=== PATIENT | male | born 1985 | race African-American/Black ===

== ENCOUNTER 2018-08-06 02:24 | Emergency (ER) | payer SELFPAY ==
[~2018-08-06] VITALS: Ht 177.8 cm; Wt 70.3 kg
--- OUTSIDE RECORDS SUMMARY | 2018-08-06 02:26 | XMS REPORT | Clinical Summary ---
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 02/02/2018 ibuprofen (ADVIL,MOTRIN) Take 1 tablet 40 tablet 0 600 MG tablet (600 mg 8 total) by mouth every 6 (six) hours as needed for mild pain for up to 30 days. 01/08/2018 acetaminophen-codeine Take 1-2 15 tablet 0 (TYLENOL WITH CODEINE #3) tablets by 8 300-30 mg per tablet mouth every 6 (six) hours as needed for moderate pain for up to 5 days. Active Problems Not on file Encounters Care Team Description Date Type Specialty Edison Dickey MD Shoulder dislocation, recurrent, left (Primary Dx) 01/03/2018 Emergency Emergency Medicine after 08/05/2017 Social History Date Tobacco Use Types Packs/Day Years Used Current Every Day Smoker 0.5 Smokeless Tobacco: Never Used Alcohol Use Drinks/Week oz/Week Comments No Sex Assigned at Date Recorded Not on file Industry Job Start Date Occupation Not on file Not on file Not on file Travel End Travel History Travel Start No recent travel history available. Last Filed Vital Signs Time Taken Vital Sign Reading 01/03/2018 3:35 AM CDT Blood Pressure 130/82 01/03/2018 3:35 AM CDT Pulse 78 01/03/2018 3:32 AM CDT Temperature 37.2 C (98.9 F) 01/03/2018 3:35 AM CDT Respiratory Rate 19 01/03/2018 3:35 AM CDT Oxygen Saturation 100% - Inhaled Oxygen - Concentration 01/03/2018 3:03 AM CDT Weight 70.3 kg (155 lb) 01/03/2018 3:03 AM CDT Height 177.8 cm (5' 10") 01/03/2018 3:03 AM CDT Body Mass Index 22.24 Plan of Treatment Health Maintenance Due Date Last Done Comments INFLUENZA VACCINE 03/11/2018 Procedures Comments Procedure Name Priority Date/Time Associated Diagnosis [place] CRITICAL CARE, E/M Routine 01/03/2018 30-74 MINUTES 4:47 AM CDT XR SHOULDER 2+ VW LEFT STAT 01/03/2018 3:47 AM CDT AK MODERATE SEDATJ SAME Routine 01/03/2018 PHYS/QHP 5/>YRS INIT 30 3:30 AM CDT MIN ORTHOPEDIC INJURY Routine 01/03/2018 TREATMENT 3:29 AM CDT XR SHOULDER 2+ VW LEFT STAT 01/03/2018 3:18 AM CDT after 08/05/2017 Results * CRITICAL CARE (01/03/2018 4:47 AM CDT) Narrative Performed At Edison Dickey MD 01/03/20184:48 AM Critical Care Performed by: EDISON DICKEY Authorized by: EDISON DICKEY Critical care provider statement: Critical care time (minutes):33 Critical care start time:01/03/2018 3:20 AM Critical care end time:01/03/2018 4:15 AM Critical care time was exclusive of:Separately billable procedures and treating other patients and teaching time Critical care was necessary to treat or prevent imminent or life-threatening deterioration of the following conditions:Trauma, 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 failure or compromise, circulatory failure and respiratory failure Critical care was time spent personally by me on the following activities:Development of treatment plan with patient or surrogate, evaluation of patient's response to treatment, examination of patient, obtaining history from patient or surrogate, interpretation of cardiac output measurements, ordering and performing treatments and interventions, ordering and review of radiographic studies, pulse oximetry and re-evaluation of patient's condition Braxton 'yes' if you are taking over critical care for this patient from another provider.: no * XR Shoulder 2+ Vw Left (01/03/2018 3:47 AM CDT) Only the most recent of 2 results within the time period is included. Narrative Performed At Examination:XR SHOULDER 2VW LEFT [facility] Clinical History: DISLOCATIONSHOULDER Comparison: None. Findings: 2 views left shoulder are obtained. There is reduction of previously noted glenohumeral dislocation which appears in anatomic alignment. No fracture is seen. IMPRESSION: 1. Successful reduction of previously noted left anterior glenohumeral dislocation. [facility]-[id number] Procedure Note Interface, Radiology Results Incoming - 01/03/2018 3:52 AM CDT Examination: XR SHOULDER 2 VW LEFT Clinical History: DISLOCATION SHOULDER Comparison: None. Findings: 2 views left shoulder are obtained. There is reduction of previously noted glenohumeral dislocation which appears in anatomic alignment. No fracture is seen. IMPRESSION: 1. Successful reduction of previously noted left anterior glenohumeral dislocation. [facility]-[id number] Performing Organization Address City/State/Zipcode Phone Number [facility] [id number] [place] [address] * ED MODERATE PROCEDURAL SEDATION (01/03/2018 3:30 AM CDT) Narrative Performed At Edison Dickey MD 01/03/20183:31 AM Procedural Sedation (Moderate/Deep) Performed by: EDISON DICKEY Authorized by: EDISON DICKEY Consent: Consent obtained:Written Consent given by:Patient Risks discussed:Allergic reaction, dysrhythmia, inadequate sedation, nausea, prolonged hypoxia resulting in organ damage, prolonged sedation necessitating reversal, respiratory compromise necessitating ventilatory assistance and intubation and vomiting Alternatives discussed:Analgesia without sedation Indications: Sedation purpose:Dislocation reduction Procedure necessitating sedation performed by:Physician performing sedation Pre-sedation assessment: NPO status caution: unable to specify NPO status ASA classification: class 1 - normal, healthy patient Neck mobility: normal Mouth openin or more finger widths Mallampati score:I - soft palate, uvula, fauces, pillars visible Procedure details (see MAR for exact dosages): Sedation start time:01/03/2018 3:25 AM Preoxygenation:Nonrebreather mask Sedation medications:Propofol Sedation level: DEEP sedation Analgesia:Morphine Intra-procedure monitoring:Blood pressure monitoring, miter cutter, continuous pulse oximetry, frequent LOC assessments and frequent vital sign checks Intra-procedure events: none Reversal agents:None required Sedation end time:01/03/2018 3:31 AM Post-procedure details: Attendance: Constant attendance by certified staff until patient recovered Recovery: Patient returned to pre-procedure baseline Respiratory status:Unassisted Patient tolerance:Tolerated well, no immediate complications * ORTHOPEDIC INJURY TREATMENT (01/03/2018 3:29 AM CDT) Narrative Performed At Edison Dickey MD 01/03/20183:30 AM Orthopedic Injury Treatment Performed by: EDISON DICKEY Authorized by: EDISON DICKEY Consent: Consent obtained:Written Consent given by:Patient Risks discussed:Nerve damage, pain and vascular damage Injury: Injury location:Shoulder Shoulder injury location:L shoulder Hill-Sachs deformity: no Pre-procedure assessment: Neurological function: diminished Distal perfusion: normal Range of motion: reduced Sedation: Sedation type:Moderate (conscious) sedation Anesthesia (see MAR for exact dosages): Anesthesia method:None Procedure details: Immobilization:Sling Post-procedure assessment: Neurological function: normal Distal perfusion: normal Range of motion: normal Patient tolerance of procedure:Tolerated well, no immediate complications after 08/05/2017 Insurance Payer Benefit Subscriber ID Type Phone Address Plan / Group xxxxxxxxx [facility] Advance Directives Patient has advance care planning documents on file. For more information, shellie dockery contact: Eugene Mcnamara [address] [place] [address]
[2018-08-06 03:13] VITALS: BP 145/111
== END 2018-08-06 03:35 | disposition home or self-care (01) ==
LOC: ER 02:24
DX: R07.0 Pain in throat (principal); I10 Essential (primary) hypertension; E78.00 Pure hypercholesterolemia, unspecified; I48.91 Unspecified atrial fibrillation; F17.210 Nicotine dependence, cigarettes, uncomplicated
CPT/HCPCS: 83518; 87070; 99282